=== PATIENT | female | born 1945 | race Caucasian/White ===

== ENCOUNTER 2024-10-31 13:27 | Emergency (ER) | payer OTHER ==
[~2024-10-31] VITALS: Ht 167.6 cm; Wt 73.0 kg
== END 2024-10-31 21:55 | disposition home or self-care (01) ==
LOC: ER 13:29 → EDBD 13:49 → ER 21:55
DX: S52.592A Other fractures of lower end of left radius, initial encounter for closed fracture (principal); W18.39XA Other fall on same level, initial encounter; Y93.89 Activity, other specified; Y92.89 Other specified places as the place of occurrence of the external cause; S52.292A Other fracture of shaft of left ulna, initial encounter for closed fracture